=== PATIENT | male | born 1980 | race Caucasian/White ===

== ENCOUNTER 2019-05-28 13:56 | Emergency (ER) | payer BC, SELFPAY ==
[2019-05-28] MEDS ORDERED: Ketorolac Tromethamine 60 MG/2 ML VIAL ONE (15:08)
--- NOTE | 2019-05-28 15:26 | ULT ---
EXAM: Right lower extremity venous duplex: Deep veins evaluated with color Doppler, spectral analysis, and compression. INDICATIONS: Pain. FINDINGS: There is lack of normal compressibility and diminished flow compatible with venous thrombos is involving posterior tibial vein of the right lower extremity. Otherwise, the imaged deep vein system of right lower extremity reveals appropriate compressibility and flow. IMPRESSION: Venous thrombosis of posterior tibial vein of right lower extremity.
== END 2019-05-28 15:47 | disposition home or self-care (01) ==
LOC: ERS 13:56
DX: I82.441 Acute embolism and thrombosis of right tibial vein (principal); F17.210 Nicotine dependence, cigarettes, uncomplicated
CPT/HCPCS: 96372; J1885